=== PATIENT | female | born 1970 | race African-American/Black ===

== ENCOUNTER 2020-05-18 20:51 | Emergency (ER) | payer OTHER ==
[~2020-05-18] VITALS: Ht 165.1 cm; Wt 72.6 kg
[~2020-05-18 20:51] MED LIST: NORCO 5-325 TA1 EACH PO; ZOLOFT50 MG PO
[2020-05-18 21:13] VITALS: BP 144/92
[2020-05-18] MEDS ORDERED: AUGMENTIN 875-1 EACH PO (21:19)
== END 2020-05-18 21:54 | disposition home or self-care (01) ==
LOC: ER 20:51
DX: S51.852A Open bite of left forearm, initial encounter (principal); J45.909 Unspecified asthma, uncomplicated; Z88.5 Allergy status to narcotic agent; Y04.1XXA Assault by human bite, initial encounter; Y93.89 Activity, other specified; Y92.89 Other specified places as the place of occurrence of the external cause; Y99.8 Other external cause status